=== PATIENT | male | born 1940 | race Caucasian/White ===

== ENCOUNTER 2019-06-09 17:24 | Observation (INO) ==
[2019-06-09] MEDS ORDERED: NEXIUM IV SCH (19:00)
[2019-06-09] MEDS ORDERED: SODIUM CHLORIDE 0.9% INJ SCH (19:00)
[2019-06-09] MEDS ORDERED: LOVENOX SUBQ SCH (20:45)
[2019-06-09 20:59] LABS: BASO# 0.11 X1000 (0.0-0.2); EOS# 0.28 X1000 (0.0-0.7); EOS% 2.5 % (0.0-10.0); HEMATOCRIT 49.4 % (42.0-52.0); HEMOGLOBIN 16.8 g/dL (14.0-18.0); IMM GRAN# 0.06 X1000 (0.0-0.04); IMM GRAN% 0.5 % (0.0-0.5); LYMPH# 1.45 X1000 (1.2-3.4); LYMPH% 12.7 % (20.5-51.1); MCH 29.5 PG (27-31); MCV 86.8 FL (81-99); MONO% 5.3 % (1.7-9.3); MPV 9.8 FL (7.4-10.4); NEUT# 8.89 X1000 (1.4-6.5); PLT 267 X1000 (130-400); RBC 5.69 XMIL (4.7-6.1); RDW 13.2 % (11.5-14.5); WBC 11.39 X1000 (4.8-10.8)
[2019-06-09 21:20] LABS: AGAP 11; ALB/GLOB RATIO 1.1; ALBUMIN 3.6 g/dL (3.5-5.0); ALKALINE PHOSPHATASE 51 U/L (32-122); BUN 9 mg/dL (8-22); CHLORIDE 106 mmol/L (98-107); CK PROFILE 113 U/L (24-204); COSMO 277; CREATININE 0.6 mg/dL (0.7-1.2); ESTIMATED GFR > 60; GLUCOSE 105 mg/dL (70-104); GOT 18 U/L (10-34); GPT 17 U/L (10-44); SODIUM 139 mmol/L (136-145); TCO2 22 mmol/L (25-35); TOTAL BILIRUBIN 0.77 mg/dL (0.20-1.00); TOTAL PROTEIN 6.8 g/dL (6.3-8.3)
--- NOTE | 2019-06-09 21:55 | HISTORY AND PHYSICAL ---
CHIEF COMPLAINT: Right-sided chest pain, cough, and hemoptysis. HISTORY OF PRESENT ILLNESS: He is a 78-year-old, obese white male who came to my office today. Had right-sided pain followed by hemoptysis. The pain was started on Sunday and slowly got better. He had a similar presentation back in September. Subsequently, patient was diagnosed with pulmonary embolism. Hypercoagulable workup was pretty much unremarkable. After anticoagulation for 6 months, symptoms were improved. Chest x-ray today in my office had no infiltrates noted. Pulse oximetry 96 percent. Some exertional shortness of breath. He is morbidly obese. Followup D-dimer continues to be increasing. Venous Dopplers were negative. He has a family history of colon cancer. Has been scheduled for a colonoscopy by Dr. Hay, and it was scheduled sometime in the next month. In the meantime, he started having these symptoms and I discussed with him probably rule out pulmonary embolism, and the patient has agreed to be admitted to the hospital for observation. Workup is in progress. As a result, a hospital admission was warranted. PAST MEDICAL HISTORY: 1. Pickwickian syndrome. 2. Sleep apnea. 3. Morbid obesity. 4. History of pulmonary embolism in September 2018. 5. BPH. 6. Hypertension. 7. Vitamin B12 deficiency. 8. Osteoarthritis. 9. Lichen sclerosis et atrophicus. PAST SURGICAL HISTORY: 1. Left ankle surgery. 2. Bilateral cataract surgery. 3. Tonsillectomy. 4. Bilateral blepharoplasty. 5. Right knee arthroplasty. 6. Pilonidal cyst excision. MEDICATIONS: 1. B12 injections once a month. 2. Finasteride 5 mg daily. 3. Robaxin 500 daily. 4. Terazosin 5 mg daily. 5. Xarelto was stopped. ALLERGIES: Not known. SOCIAL HISTORY: Self-employed in [place]. . Drinks socially alcohol. Quit smoking in 1975. FAMILY HISTORY: Father at the age of 83 of abdominal aneurysm, colon cancer. Mom at 89, of gallbladder complications. HEALTH MAINTENANCE: Flu vaccine, pneumonia refused. Last digital exam March 2018. Colonoscopy September 2015. REVIEW OF SYSTEMS: HEENT: No headache. No vision problem. No earache. No sore throat. Neck: No goiter. No lymphadenopathy. No bruit. Cardiopulmonary: No chest pain anteriorly. Right- sided abdominal pain and lower chest pain. Cough with hemoptysis. GI: No nausea, vomiting, abdominal pain, altered bowel habits, bleeding per rectum. : No history of hesitancy, frequency, dysuria. Extremities: No swelling of legs. No joint pain. Neurologic: No focal symptoms or weakness. PHYSICAL EXAMINATION: VITAL SIGNS: Temperature is 97.5 degrees, pulse 82, blood pressure 134/80, height 5 feet 10 inches, weight 324 pounds. HEENT: Atraumatic, normocephalic. Pupils equal, react to light. TMs are normal. Nose and throat are within normal limits. NECK: Supple. No lymphadenopathy. No goiter. CHEST: Bilateral air entry. HEART: Sounds are regular. No tachycardia. ABDOMEN: Belly is soft, obese, nontender. Good bowel sounds. RECTAL: Prostate negative. Heme-negative stool. EXTREMITIES: No peripheral edema or cyanosis. NEUROLOGIC: No obvious neurological deficits. Exam is suboptimal. LABORATORY DATA: White cell count 11, hematocrit 49, platelets 267,000. Rest of the labs are pending. Chest x-ray: Poor inspiratory film. No infiltrates. No masses. ASSESSMENT AND PLAN: 78-year-old white male admitted to the hospital basically with right-sided pain, resolved, now complains of hemoptysis. Previous history of pulmonary embolism, treated for 6 months, unprovoked embolism. Risk factors: Morbid obesity. Hypercoagulable workup was negative. Continues to rise D-dimer after stopping the Xarelto. Plan is CT pulmonary angiogram, follow up on the pending labs, and in the meantime deep venous thrombosis and gastrointestinal prophylaxis, cardiac healthy diet, physical therapy, and we are going to review his home medications. Family history of colon cancer. Follow up on CEA level and waiting for colonoscopy next month. Based on the CT, further recommendations will be followed. cc: Glenn London MD
[2019-06-09] MEDS: PROTONIX IV SCH (22:55)
[2019-06-09] MEDS: SODIUM CHLORIDE 0.9% INJ SCH (22:55)
[2019-06-10] MEDS ORDERED: LOVENOX SUBQ ONE (00:44)
--- NOTE | 2019-06-10 07:42 | Diag Imaging Result Doc PS360 ---
EXAM: CT ANGIOGRM PULMONARY ARTERIES HISTORY: SOB and PE before TECHNIQUE: CT chest with intravenous contrast. Arteriogram protocol with MIP images. COMPARISON: 09/20/2018 FINDINGS: No large central pulmonary emboli. There are small peripheral pulmonary emboli in branches of the right upper and middle lobe arteries as well as left lower lobe pulmonary artery branches. No aortic aneurysm or dissection. No cardiomegaly. No pleural effusions. No enlarged lymph nodes. There are calcified left hilar lymph nodes. Mild increased interstitial markings in the periphery of the lungs. 13 mm pleural-based nodular density posteriorly in the right lung base is similar to the prior exam. No consolidation. No bronchiectasis. Limited images through the upper abdomen reveal fatty infiltration of the liver and several stones within the gallbladder IMPRESSION: 1.Small bilateral pulmonary emboli 2.Tiny peripheral infiltrates versus fibrosis 3.Stable nodular pleural-based density in the right lower lobe 4.A preliminary report was given at 12:24 AM This exam was performed using automated exposure control, adjustment of mA or kV according to patient size, and/or use of iterative reconstruction technique. Electronically signed by Paul Roberts 06/10/2019 7:40 AM
[2019-06-10] MEDS: HYTRIN PO SCH ×2 (09:47→21:05)
[2019-06-10] MEDS: PRINIVIL PO SCH (09:47)
[2019-06-10] MEDS: ASPIRIN EC PO SCH (09:47)
--- NOTE | 2019-06-10 11:14 | Diag Imaging Result Doc PS360 ---
EXAM: CT ABD/PELVIS W/PO AND IV CON INDICATION: patient has blood clots TECHNIQUE: This exam was performed using automated exposure control, adjustment of mA or kV according to patient size, and/or use of iterative reconstruction technique. COMPARISON: No prior abdominal CT is available for comparison. FINDINGS: There are fibrotic changes at both lung bases. There is a peripheral and somewhat wedge-shaped opacity in the right middle lobe that is stable as compared to yesterday's CTA chest. It is possible that this represents a small pulmonary infarct given the known pulmonary emboli seen on yesterday's chest CT. There is a stable pleural-based nodule at the posterior right lung base for which continued surveillance based on Fleischner Society criteria is suggested. There is diffuse mild hepatic steatosis. There is cholelithiasis with no pericholecystic inflammatory stranding. The spleen, pancreas, adrenal glands, and kidneys are unremarkable. There is contrast filling the urinary bladder on the venous phase from yesterday's CTA chest. The bladder is essentially unremarkable, otherwise. There is advanced diverticulosis coli. There is questionable very mild mesenteric stranding around the sigmoid colon this could represent minimal diverticulitis. Please correlate clinically. No discrete colonic wall thickening is appreciated, however. The appendix is normal. No small bowel wall thickening is appreciated. There is no evidence of bowel obstruction. The remainder of the GI tract is essentially unremarkable. There is a small umbilical hernia that contains only fat. There is advanced degenerative arthropathy throughout the visualized spine. This is causing severe central spinal stenosis at L1-2, L2-3, and L3-4. There is muscular atrophy and both thighs, more prominent on the right. IMPRESSION: 1.Advanced diverticulosis coli with questionable minimal stranding adjacent to a segment of the sigmoid colon. Very mild diverticulitis is possible in the right clinical scenario. Note that no definite wall thickening is appreciated. 2.Small consolidation at the periphery of the right middle lobe that is stable and could represent a small pulmonary infarct given the known pulmonary emboli seen on recent CTA chest. 3.Pleural-based noncalcified nodule at the posterior right lung base that is stable. Follow-up based on Fleischner Society criteria is recommended. 4.Severe lumbar spine degenerative arthropathy causing marked central spinal stenosis at several levels. 5.Other incidental/nonacute findings detailed above. Electronically signed by Jabari Collier 06/10/2019 11:12 AM
[2019-06-10] MEDS: LOVENOX SUBQ SCH (13:15)
[2019-06-10] MEDS ORDERED: PROSCAR PO SCH (21:00)
[2019-06-10] MEDS: SODIUM CHLORIDE 0.9% INJ SCH (21:05)
[2019-06-10] MEDS: PROTONIX IV SCH (21:06)
--- NOTE | 2019-06-10 22:22 | PROGRESS NOTE ---
DATE: 06/10/2019 SUBJECTIVE: Events noted over the last night, the patient does have recurrent pulmonary embolus. Positive D-dimer. Pain is better and the patient is undergoing CT of the abdomen and pelvis and Venous Doppler's. REVIEW OF SYSTEMS: Pain is better. Still hemoptysis. OBJECTIVE: Vital signs: Temperature is 97 degrees, pulse 73. Vitals are stable. Morbidly obese. HEENT: Within normal limits. Neck: Supple. No lymphadenopathy. Suboptimal exam and no obvious deficits. INVESTIGATIONS: D-dimer 3.14. CEA 3.6. ProBNP 71. CT scan of the abdomen and pelvis, bilateral small pulmonary embolus, diverticulosis, fatty liver, cholelithiasis, spondylosis of lumbar spine, pleural based noncalcified nodule in the right lung base, stable. ASSESSMENT AND PLAN: 1. Recurrent pulmonary embolus, unprovoked x2. Hypercoagulable is negative, waiting for colonoscopy. Plan is Lovenox 150 mg subcu q.12 hours and will slowly transition into Xarelto DVT pack. 2. Obstructive sleep apnea, on CPAP machine. 3. So far no inkling of having any malignancy. 4. Continue Lovenox and will follow up on CT in the morning and follow up as an outpatient. LEVEL OF DOCUMENTATION: Was 25 minutes. cc: Glenn London MD
[2019-06-11] MEDS: LOVENOX SUBQ SCH (01:50)
[2019-06-11 07:51] VITALS: BP 114/72
[2019-06-11] MEDS: HYTRIN PO SCH (08:46)
[2019-06-11] MEDS: ASPIRIN EC PO SCH (08:46)
[2019-06-11] MEDS: PRINIVIL PO SCH (08:46)
--- NOTE | 2019-06-11 22:46 | DISCHARGE SUMMARY ---
ADMISSION DATE: 06/09/2019 DISCHARGE DATE: 06/11/2019 DISCHARGE DIAGNOSIS: Right-sided chest pain due to recurrent unprovoked pulmonary embolism x2. SECONDARY DIAGNOSES: 1. Pickwickian syndrome. 2. Sleep apnea. 3. Morbid obesity. 4. Benign prostatic hypertrophy. 5. Hypertension. 6. B12 deficiency. 7. Osteoarthritis. 8. 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 9. Cholelithiasis. 10. Spondylosis of lumbar spine. BRIEF HISTORY: Please see the H and P that was done on 06/09/2019. In brief, he is a 78-year-old obese white male who came in my office with right-sided pain over the weekend followed by hemoptysis. He was treated for a PE in September for 6 months. Hypercoagulable workup was negative. There was no inkling of any occult malignancy. He had a normal PSA. He has a family history of colon cancer. He has been scheduled for colonoscopy by Dr. Hay. He was very hypoxic. Admitted to the hospital. HOSPITAL COURSE: He was given Lovenox 1 mg/kg b.i.d. followed by CT scan which showed bilateral small pulmonary emboli with infarct on the right side. He was hypoxic. CT scan of the abdomen and pelvis showed gallstones. No evidence of any malignancy. Venous Dopplers were done, both sides of which are pending. The patient was given a Xarelto DVT pack for 21 days and will maintain it for the rest of his life. At the time of discharge, the patient was stable. LABORATORY DATA: White cell count 11, hematocrit 49, platelet count 267. D-dimer 3.14. SM-7 is normal. Glucose 105. ProBNP was normal. CEA level 3.6. CT scan of the abdomen and pelvis: Findings - advanced diverticulosis, small pulmonary infarct at the periphery of the right middle lobe, pleural-based noncalcified nodules, stable, lumbar spine spondylosis. DISCHARGE INSTRUCTIONS: The patient was discharged home in a stable condition with the following instructions: 1. Declined the flu vaccine. 2. Hytrin 5 mg p.o. b.i.d. 3. Lisinopril 5 mg daily. 4. Finasteride 5 mg at bedtime. 5. Aspirin 81 mg daily. 6. Xarelto 20 mg p.o. b.i.d. for 3 weeks and 20 mg once a day for the rest of his life. 7. Outpatient colonoscopy. 8. Continues CPAP machine. 9. Follow up in my office in 10 days. cc: Glenn London MD
--- NOTE | 2019-06-12 09:44 | Extremity Venous Study ---
PROCEDURE NAME: Venous U/S Bilateral Legs - 06/10/2019 REFERRING PHYSICIAN: Dr. London. READING PHYSICIAN: Dr. Arrieta. RESTAURANT OPERATIONS MANAGER: Gutierrez. INDICATION: Pulmonary embolus. FINDINGS: The deep and superficial veins of both lower extremities were imaged throughout their course. They are compressible, patent, and without thrombus. INTERPRETATION: No DVT or SVT of either lower extremity. cc: MD Glenn Pedroza MD
== END 2019-06-11 09:46 | disposition home or self-care (01) ==
LOC: DIRADM 17:24 → INTOOBSV 17:24 → 4N 18:06
PROVIDERS: ADMIT Internal Medicine; ATTEND Internal Medicine